=== PATIENT | female | born 1955 | race Caucasian/White ===

== ENCOUNTER 2017-10-15 18:29 | Emergency (ER) | payer MEDICARE, OTHER ==
[~2017-10-15] VITALS: Ht 157.5 cm; Wt 91.8 kg
[2017-10-15] MEDS ORDERED: NORCO 5-325 TA1 EACH PO (18:55)
[2017-10-15] MEDS ORDERED: NEURONTIN300 MG PO (18:55)
[2017-10-15] MEDS ORDERED: VALTREX1000 MG PO (18:55)
== END 2017-10-15 19:11 | disposition home or self-care (01) ==
LOC: ED 18:29
DX: B02.9 Zoster without complications (principal)
CPT/HCPCS: 99283